=== PATIENT | female | born 1990 | race African-American/Black ===

== ENCOUNTER 2019-09-10 12:16 | Emergency (ER) | payer SELFPAY ==
[~2019-09-10] VITALS: Ht 172.7 cm; Wt 57.0 kg
[2019-09-10] MEDS ORDERED: IBUPROFEN 600MG TABLET PO ONE (13:00)
[2019-09-10 13:11] VITALS: BP 108/74
== END 2019-09-10 13:12 | disposition left against medical advice (07) ==
LOC: ER 12:16
DX: R07.89 Other chest pain (principal); Z53.21 Procedure and treatment not carried out due to patient leaving prior to being seen by health care provider